=== PATIENT | female | born 1955 | race Caucasian/White ===

== ENCOUNTER 2025-08-03 17:46 | Emergency (ER) | payer OTHER, MEDICARE, SELFPAY ==
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
[2025-08-03 17:49] VITALS: BP 160/83; PULSE 55; RESP 16; O2SAT 100
--- NOTE | 2025-08-03 17:55 | ECG_ITS ---
Test Date: 2025-08-03 18:00:58 Measurements Intervals Edwards Rate: 55 P: -3 ME: 127 QRS: -9 QRSD: 100 T: -10 QT: 405 QTc: 388 Interpretive Statements SINUS BRADYCARDIA WITH SINUS ARRHYTHMIA LOW QRS VOLTAGE IN PRECORDIAL LEADS INCOMPLETE RIGHT BUNDLE BRANCH BLOCK POSSIBLE ANTERIOR MYOCARDIAL INFARCTION , OF INDETERMINATE AGE Electronically Signed On 08-04-2025 09:56:30 READING TEACHER by Adam Can D.O
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
[2025-08-03 19:03] VITALS: BP 149/60; PULSE 52; RESP 16; TEMP 36.7; O2SAT 100
[2025-08-03] MEDS: SODIUM CHLORIDE 0.9% IV 1,000 ML 150 ML IV CONT (19:28)
[2025-08-03] MEDS: ONDANSETRON INJ 4 MG/2 ML VIAL IV PUSH (19:29)
[2025-08-03] MEDS: MORPHINE SULFATE (*CRX) 4 MG/ML INJ 2 MG IV PUSH (19:32)
== END 2025-08-03 20:37 | disposition short-term general hospital (02) ==
PROVIDERS: Emergency Provider Emergency Medicine; PCP Internal Medicine
DX: S29.9XXA Unspecified injury of thorax, initial encounter (principal); I10 Essential (primary) hypertension; E78.5 Hyperlipidemia, unspecified; V43.62XA Car passenger injured in collision with other type car in traffic accident, initial encounter; R00.1 Bradycardia, unspecified; I45.10 Unspecified right bundle-branch block; R94.31 Abnormal electrocardiogram [ECG] [EKG]
CPT/HCPCS: 71045; 93005; 96361; 96374; 96375; 99285; J2270; J2405; J7030; L0140